=== PATIENT | male | born 1955 | race Caucasian/White ===

== ENCOUNTER 2021-11-16 08:34 | Emergency (ER) | payer MEDICARE ==
[~2021-11-16] VITALS: Ht 185.4 cm; Wt 108.9 kg
[2021-11-16] MEDS ORDERED: DULO60 PO (09:30)
[2021-11-16] MEDS ORDERED: LOSA50 PO (09:31)
[2021-11-16] MEDS ORDERED: Norco 5-325 Ta1 EACH PO ×2 (09:36→10:28)
== END 2021-11-16 10:00 | disposition home or self-care (01) ==
LOC: ER 08:34
DX: S22.42XA Multiple fractures of ribs, left side, initial encounter for closed fracture (principal); W06.XXXA Fall from bed, initial encounter; Z79.899 Other long term (current) drug therapy
CPT/HCPCS: 71046; J1885